=== PATIENT | female | born 1955 | race Caucasian/White ===

== ENCOUNTER 2017-05-06 08:17 | Day surgery (SDC) | payer BC, OTHER ==
[~2017-05-06 08:17] MED LIST: Lactated Ringers 1,000 ML IV SCH
[2017-05-06] MEDS ORDERED: Propofol 200 MG/20 ML SDV ONE ×2 (10:07→10:32)
--- NOTE | 2017-05-06 15:14 | OR ---
PREOPERATIVE DIAGNOSIS: History of constipation. POSTOPERATIVE DIAGNOSIS: History of constipation. PROCEDURE PERFORMED: Colonoscopy. INDICATION: The patient is a 62-year-old female with a long history of constipation, worsening over the last few months. Presents for colonoscopy for further evaluation. PROCEDURE IN DETAIL: This was done in the operating room under general anesthesia. Sedation was given per Anesthesia. She was placed in left lateral position. First, rectal exam was done, scan was normal. Scope was introduced in to the rectum, slowly advanced through the rectum, sigmoid, descending, transverse, and ascending colon until the cecum was reached. Upon reaching the cecum, the scope was slowly withdrawn, looking at all mucosal surfaces on the way out. No mucosal abnormalities, lesions, or polyps were noted. She had a rather long colon with multiple bands in it, consistent with her history of constipation. BKD: 05/06/2017 10:45:12 MODL: 05/06/2017 15:02:15 /[id number]
== END 2017-05-06 12:45 | disposition home or self-care (01) ==
LOC: VM.SDS 08:17
PROVIDERS: ATTEND Surgery
DX: K59.00 Constipation, unspecified (principal); Z88.8 Allergy status to other drugs, medicaments and biological substances; Z98.890 Other specified postprocedural states; Z79.899 Other long term (current) drug therapy
CPT/HCPCS: 45378; J2704; J7120